=== PATIENT | male | born 1960 | race Caucasian/White ===

== ENCOUNTER 2020-10-25 02:40 | Outpatient (CLI) | payer OTHER, SELFPAY ==
[2020-10-27 23:42] LABS: COVID-19 RT-PCR Result NEGATIVE (Negative)
== END 2020-10-25 03:00 ==
PROVIDERS: Visit Provider Family Medicine
DX: Z11.59 Encounter for screening for other viral diseases (principal); Z01.811 Encounter for preprocedural respiratory examination
CPT/HCPCS: U0003

== ENCOUNTER 2020-10-28 01:39 | Outpatient (CLI) | payer OTHER, SELFPAY ==
[2020-10-28] MEDS: Albuterol HFA 18 GM 200 PUFF INH IH (09:31)
[2020-10-28] MEDS: Inhaler, Assist Device 1 EACH MC (09:31)
--- NOTE | 2020-10-31 08:38 | W.PFT ---
Date of service: 10/28/20 Time of Service: 08:09 Pulmonary Function Test Result Interpretation Spirometry: Shows no evidence of obstructive airways disease, no bronchodilator response Lung Volumes: No evidence of restriction Diffusion Capacity: Normal Airway Pressure: Mildly elevated Impression Isolated mildly elevated airways resistance, otherwise normal pulmonary function test. This can represent early, developing obstructive lung disease. If the diagnosis of asthma is in question, proceeding with methacholine challenge testing may prove to be useful Clinical Correlation therefore is recommended.
== END 2020-10-28 01:59 ==
PROVIDERS: PCP Student in an Organized Health Care Education/Training Program; Visit Provider Student in an Organized Health Care Education/Training Program
DX: J45.20 Mild intermittent asthma, uncomplicated (principal); R05 Cough
CPT/HCPCS: 94060; 94726; 94729